=== PATIENT | female | born 1980 | race Asian ===

== ENCOUNTER 2016-12-22 13:37 | Emergency (ER) | payer OTHER ==
[~2016-12-22] VITALS: Ht 152.4 cm; Wt 99.8 kg
[~2016-12-22 13:37] MED LIST: AMOX875T PO; CYCL10TA2 PO; HYDR-971 PO; NAPR500T8 PO
[2016-12-22 13:40] VITALS: BP 149/102
--- NOTE | 2016-12-22 15:51 | PHYS DOC ---
Past Medical History Past Medical History: No Pertinent History Past Surgical History: No Surgical History Additional Information: nonsmoker Alcohol Use: None Drug Use: None Adult General Chief Complaint Chief Complaint: MENSTRUAL PAIN/[facility] HPI Patient is a 36 year old female who presents with suprapubic pain starting yesterday. She reports nausea without vomiting. She feels pain in her lower abdomen when urinating but denies burning with urination. She has had urinary frequency without urgency or hematuria. She denies change in bowel movements, fever, or vaginal discharge. The patient reports that she has had vaginal bleeding since 11/23/16. She had not had a menstrual cycle in many years prior to last month. She is not on control. She has never been . She is unsure why she did not have menses, but never sought medical attention for her lack of menses. She does not have a PCP. Review of Systems Review of Systems Constitutional: Denies fever or chills. [] Eyes: Denies change in visual acuity, redness, or eye pain. [] HENT: Denies ear pain, nasal congestion or sore throat. [] Respiratory: Denies cough or shortness of breath. [] Cardiovascular: Denies chest pain, palpitations or edema. [] GI: Denies vomiting, bloody stools or diarrhea. Reports suprapubic pain and nausea. : Denies dysuria, hematuria. Denies vaginal discharge or urinary urgency. Reports urinary frequency and vaginal bleeding. Musculoskeletal: Denies joint pain. Reports bilateral lower back pain. Integument: Denies rash or skin lesions. [] Neurologic: Denies headache, focal weakness or sensory changes. [] Endocrine: Denies polyuria or polydipsia. [] Psych: Denies anxiety or depression. [] All systems reviewed and negative unless otherwise stated in the HPI. Allergies Allergies Allergies Coded Allergies Type Severity Reaction Last Updated Verified No Known Drug Allergies 03/03/16 No Physical Exam Physical Exam Constitutional: Well developed, well nourished, no acute distress, non-toxic appearance. [] HENT: Normocephalic, atraumatic, oropharynx moist. [] Eyes: PERRLA, EOMI, conjunctiva normal, no discharge. [] Neck: Normal range of motion, no tenderness, supple, no stridor. [] Cardiovascular: Heart rate regular rhythm, no murmur. [] Lungs & Thorax: Bilateral breath sounds clear to auscultation without wheezes, rales, or rhonchi. [] Abdomen: Bowel sounds normal, soft, suprapubic tenderness, no masses, no pulsatile masses. [] Female : ED RN armature connector present. Skin: Warm, dry, no erythema, no rash. [] Back: No midline tenderness, no CVA tenderness. [] Extremities: No tenderness, ROM intact, no edema. Distal pulses equal bilaterally. [] Neurologic: Alert and oriented X 3, normal motor function, normal sensory function, no focal deficits noted. [] Psychologic: Affect normal, judgement normal, mood normal. [] Current Patient Data Vital Signs Vital Signs Date Time Temp Pulse Resp B/P Pulse Ox O2 Delivery O2 Flow Rate FiO2 12/22/16 13:40 98.9 98 18 149/102 98 Room Air 98.9 Lab Values Laboratory Tests Test 12/22/16 15:00 12/22/16 15:20 12/22/16 16:18 POC Urine HCG, Qualitative Hcg negative (Negative) Urine Collection Type Unknown Urine Color Yellow Urine Clarity Turbid Urine pH 8.0 Urine Specific [place] 1.020 Urine Protein 30mg/dL (NEG-TRACE) Urine Glucose (UA) Negativemg/dL (NEG) Urine Ketones (Stick) Negativemg/dL (NEG) Urine Blood Large (NEG) Urine Nitrite Negative (NEG) Urine Bilirubin Negative (NEG) Urine Urobilinogen Dipstick 1.0mg/dL (0.2 mg/dL) Urine Leukocyte Esterase Small (NEG) Urine RBC >40/HPF (0-2) Urine WBC 1-4/HPF (0-4) Urine Squamous Epithelial Cells Mod/LPF Urine Amorphous Sediment Present/HPF Urine Bacteria 0/HPF (0-FEW) White Blood Count 10.6x10^3/uL (4.0-11.0) Red Blood Count 4.04x10^6/uL (3.50-5.40) Hemoglobin 10.4g/dL (12.0-15.5) L Hematocrit 32.2% (36.0-47.0) L Mean Corpuscular Volume 80fL (79-100) Mean Corpuscular Hemoglobin 26pg (25-35) Mean Corpuscular Hemoglobin Concent 32g/dL (31-37) Red Cell Distribution Width 15.1% (11.5-14.5) H Platelet Count 305x10^3/uL (140-400) Neutrophils (%) (Auto) 68% (31-73) Lymphocytes (%) (Auto) 19% (24-48) L Monocytes (%) (Auto) 10% (0-9) H Eosinophils (%) (Auto) 2% (0-3) Basophils (%) (Auto) 0% (0-3) Neutrophils # (Auto) 7.3x10^3uL (1.8-7.7) Lymphocytes # (Auto) 2.0x10^3/uL (1.0-4.8) Monocytes # (Auto) 1.1x10^3/uL (0.0-1.1) Eosinophils # (Auto) 0.2x10^3/uL (0.0-0.7) Basophils # (Auto) 0.0x10^3/uL (0.0-0.2) Laboratory Tests 12/22/16 16:18 Microbiology 12/22/16 Wet Prep - Final, Complete Microbiology 12/22/16 Wet Prep - Final, Complete WET PREP Final YEAST NONE SEEN TRICHOMONAS NONE SEEN CLUE CELLS NONE SEEN WBCS MODERATE EKG EKG [] Radiology/Procedures Radiology/Procedures REASON: vaginal bleeding x1 month PROCEDURE: PELVIS ULTRASOUND Pelvic ultrasound, 12/22/2016: History: Vaginal bleeding and pelvic pain Transabdominal scans were obtained. The uterus measures 8.3 x 5.4 x 3.6 cm. The central uterine echo complex measures 7 mm in AP dimension. The ovaries are of normal size. Blood flow is present in both ovaries. No adnexal mass is seen. No free fluid is evident in the pelvis. IMPRESSION: No significant abnormality is detected. Course & Med Decision Making Course & Med Decision Making Pertinent Labs and Imaging studies reviewed. (See chart for details) The patient is a 36-year-old female presents with suprapubic pain starting today and vaginal bleeding ongoing for 1 month. On exam, her abdomen is soft and nonsurgical with suprapubic tenderness. Pelvic examination reveals moderate bleeding with diffuse tenderness. Pelvic ultrasound does not show any acute abnormalities. Wet mount is negative. Urine is negative for infection. Her hemoglobin is stable. She is discharged with prescription for Tylenol #3 and naproxen. She is given contact information for gynecology for follow-up. Return precautions were discussed. She verbalizes understanding and agrees with plan. Dragon Disclaimer Dragon Disclaimer This electronic medical record was generated, in whole or in part, using a voice recognition dictation system. Departure Departure Impression: Primary Impression: Menorrhagia with irregular cycle Disposition: HOME, SELF-CARE Condition: STABLE Referrals: PANCHITO FINE Jr, MD Patient Instructions: Menorrhagia, [id number] Additional Instructions: You were seen for vaginal bleeding and pelvic pain. Your ultrasound does not show any abnormalities. Your urine does not show any infection. Please follow-up with the director listed below for your vaginal bleeding. Return to the emergency department if you have heavy bleeding requiring you to change a pad or tampon every hour or, feel lightheaded or dizzy, or have any other new or concerning symptoms. Scripts Acetaminophen With Codeine (Tylenol With Codeine #3 Tablet)1 Each Tablet1 Tab PO PRN Q6HRS PRN PAIN #20 TAB Prov:ANNA CANDELARIO 12/22/16 Naproxen (Naprosyn)500 Mg Tablet1 Tab PO BID #20 TAB Prov:ANNA CANDELARIO 12/22/16 ANNA CANDELARIO Dec 22, 2016 15:51
[2016-12-22 16:01] LABS: BILIRUBIN,URINE NEGATIVE (NEG); GLUCOSE,URINE NEGATIVE (NEG); NITRITE,URINE NEGATIVE (NEG); PROTEIN,URINE 30 mg/dL (NEG-TRACE)
[2016-12-22 16:09] LABS: BACTERIA,URINE 0 /HPF (0-FEW); RBC,URINE >40 /HPF (0-2); SQUAMOUS EPITHELIAL CELL,UR MOD /LPF
--- NOTE | 2016-12-22 16:29 | RAD ---
Pelvic ultrasound, 12/22/2016: History: Vaginal bleeding and pelvic pain Transabdominal scans were obtained. The uterus measures 8.3 x 5.4 x 3.6 cm. The central uterine echo complex measures 7 mm in AP dimension. The ovaries are of normal size. Blood flow is present in both ovaries. No adnexal mass is seen. No free fluid is evident in the pelvis. IMPRESSION: No significant abnormality is detected.
[2016-12-22] MEDS ORDERED: NAPR500T PO (16:36)
[2016-12-22] MEDS ORDERED: ACET-704 PO (16:36)
[2016-12-22 16:42] LABS: BASO % 0 % (0-3); EOS % 2 % (0-3); HEMATOCRIT 32.2 % (36.0-47.0); HEMOGLOBIN 10.4 g/dL (12.0-15.5); LYMPH % 19 % (24-48); MEAN CORPUSCULAR HEMOGLOBIN 26 pg (25-35); MEAN CORPUSCULAR HGB CONC 32 g/dL (31-37); MEAN CORPUSCULAR VOLUME 80 fL (79-100); MONO % 10 % (0-9); NEUT % 68 % (31-73); PLATELET COUNT 305 x10^3/uL (140-400); RED BLOOD COUNT 4.04 x10^6/uL (3.50-5.40); RED CELL DISTRIBUTION WIDTH 15.1 % (11.5-14.5); WHITE BLOOD COUNT 10.6 x10^3/uL (4.0-11.0)
== END 2016-12-22 17:00 | disposition home or self-care (01) ==
LOC: ER 13:37
DX: N92.5 Other specified irregular menstruation (principal)
CPT/HCPCS: 36415; 76856; 81001; 81025; 85027; 87086; 87491; 87591; 99285; Q0111

== ENCOUNTER 2017-08-07 10:21 | Emergency (ER) | payer SELFPAY ==
[~2017-08-07] VITALS: Ht 152.4 cm; Wt 90.7 kg
[~2017-08-07 10:21] MED LIST changes: +ACET-704 PO; +NAPR500T PO
[2017-08-07] MEDS ORDERED: FAMOTIDINE 20 MG/2 ML VIAL IVP ONE (11:45)
[2017-08-07] MEDS ORDERED: ONDANSETRON PF 4 MG/2 ML VIAL. IV ONE (11:45)
[2017-08-07] MEDS ORDERED: KETOROLAC 30 MG/ML INJ. IV ONE (11:45)
[2017-08-07 12:11] LABS: BILIRUBIN,URINE NEGATIVE (NEG); GLUCOSE,URINE NEGATIVE (NEG); NITRITE,URINE NEGATIVE (NEG); PROTEIN,URINE NEGATIVE (NEG-TRACE)
[2017-08-07 12:16] LABS: BASO # 0.1 x10^3/uL (0.0-0.2); BASO % 1 % (0-3); EOS % 4 % (0-3); HEMATOCRIT 29.5 % (36.0-47.0); LYMPH # 2.5 x10^3/uL (1.0-4.8); LYMPH % 30 % (24-48); MEAN CORPUSCULAR HEMOGLOBIN 20 pg (25-35); MEAN CORPUSCULAR HGB CONC 31 g/dL (31-37); MEAN CORPUSCULAR VOLUME 66 fL (79-100); MONO % 6 % (0-9); NEUT % 59 % (31-73); PLATELET COUNT 343 x10^3/uL (140-400); RED BLOOD COUNT 4.48 x10^6/uL (3.50-5.40); RED CELL DISTRIBUTION WIDTH 18.6 % (11.5-14.5); WHITE BLOOD COUNT 8.4 x10^3/uL (4.0-11.0)
[2017-08-07 12:25] LABS: CALCIUM 8.3 mg/dL (8.5-10.1); CREATININE 0.6 mg/dL (0.6-1.0); GFR 114.4; POTASSIUM 4.1 mmol/L (3.5-5.1)
[2017-08-07 12:30] LABS: ALBUMIN 3.1 g/dL (3.4-5.0); ALBUMIN/GLOBULIN RATIO 0.6 (1.0-1.7); TOTAL BILIRUBIN 0.2 mg/dL (0.2-1.0); TOTAL PROTEIN 7.9 g/dL (6.4-8.2)
--- NOTE | 2017-08-07 12:35 | RAD ---
Abdominal ultrasound, 08/07/2017: History: Abdominal pain The gallbladder is within normal limits in size. There is no sonographic evidence of cholelithiasis. The common hepatic duct measures 4 mm. There is no evidence of a hepatic mass or bile duct dilatation. The hepatic echogenicity is slightly increased, most commonly due to fatty change. Limited views of the pancreatic body are unremarkable. Other portions of the pancreas and central retroperitoneum including the aorta were obscured by overlying bowel. The visualized portions of the aorta and inferior vena cava are unremarkable. The spleen is of normal size. No renal abnormality is detected. IMPRESSION: 1. Increased hepatic echogenicity suggesting hepatic steatosis. 2. No acute abdominal abnormality is detected.
[2017-08-07 12:41] LABS: BACTERIA,URINE 0 /HPF (0-FEW); SQUAMOUS EPITHELIAL CELL,UR MOD /LPF
[2017-08-07] MEDS ORDERED: OMEP20CA9 PO (13:18)
[2017-08-07] MEDS ORDERED: PREN1TAB58 PO (13:18)
--- NOTE | 2017-08-07 13:19 | PHYS DOC ---
Past Medical History Past Medical History: No Pertinent History Past Surgical History: No Surgical History Alcohol Use: None Drug Use: None Adult General Chief Complaint Chief Complaint: ABDOMINAL PAIN HPI HPI Patient is a 36 year old female with no significant medical history who presents with mild epigastric abdominal pain that began 2 days ago. Patient denies any nausea vomiting with it. Patient denies any urgency frequency dysuria. Denies anything exacerbating or making the pain better. Denies any vaginal discharge, denies any chance she is . Review of Systems Review of Systems Constitutional: Denies fever or chills [] Eyes: Denies change in visual acuity, redness, or eye pain [] HENT: Denies nasal congestion or sore throat [] Respiratory: Denies cough or shortness of breath [] Cardiovascular: No additional information not addressed in HPI [] GI: Epigastric abdominal pain, denies nausea, vomiting, bloody stools or diarrhea [] : Denies dysuria or hematuria [] Musculoskeletal: Denies back pain or joint pain [] Integument: Denies rash or skin lesions [] Neurologic: Denies headache, focal weakness or sensory changes [] All other systems were reviewed and found to be within normal limits, except as documented in this note. Current Medications Current Medications Current Medications Medications (Trade) Dose Ordered Sig/Valorie Start Time Stop Time Status Last Admin Dose Admin Famotidine (Pepcid Vial) 20 mg 1X ONCE 08/07/17 11:45 08/07/17 11:46 DC 08/07/17 12:05 20 MG Ketorolac Tromethamine (Toradol) 30 mg 1X ONCE 08/07/17 11:45 08/07/17 11:46 DC 08/07/17 12:05 30 MG Ondansetron HCl (Zofran) 4 mg 1X ONCE 08/07/17 11:45 08/07/17 11:46 DC 08/07/17 12:05 4 MG Allergies Allergies Allergies Coded Allergies Type Severity Reaction Last Updated Verified No Known Drug Allergies 03/03/16 No Physical Exam Physical Exam Constitutional: Well developed, well nourished, no acute distress, non-toxic appearance. [] HENT: Normocephalic, atraumatic, bilateral external ears normal, oropharynx moist, no oral exudates, nose normal. [] Eyes: PERRLA, EOMI, conjunctiva normal, no discharge. [] Neck: Normal range of motion, no tenderness, supple, no stridor. [] Cardiovascular:Heart rate regular rhythm, no murmur [] Lungs & Thorax: Bilateral breath sounds clear to auscultation [] Abdomen: Bowel sounds normal, soft, slight epigastric tenderness, no right upper quadrant or right lower quadrant tenderness no masses, no pulsatile masses. [] Skin: Warm, dry, no erythema, no rash. [] Back: No tenderness, no CVA tenderness. [] Extremities: No tenderness, no cyanosis, no clubbing, ROM intact, no edema. [] Neurologic: Alert and oriented X 3, normal motor function, normal sensory function, no focal deficits noted. [] Psychologic: Affect normal, judgement normal, mood normal. [] Current Patient Data Vital Signs Vital Signs Date Time Temp Pulse Resp B/P (MAP) Pulse Ox O2 Delivery O2 Flow Rate FiO2 08/07/17 10:55 97.7 61 18 142/66 (91) 95 Room Air 97.7 Lab Values Laboratory Tests Test 08/07/17 11:01 08/07/17 11:02 08/07/17 12:05 POC Urine HCG, Qualitative Hcg negative (Negative) Urine Collection Type Unknown Urine Color Yellow Urine Clarity Clear Urine pH 6.0 Urine Specific [place] 1.025 Urine Protein Negative mg/dL (NEG-TRACE) Urine Glucose (UA) Negative mg/dL (NEG) Urine Ketones (Stick) Negative mg/dL (NEG) Urine Blood Negative (NEG) Urine Nitrite Negative (NEG) Urine Bilirubin Negative (NEG) Urine Urobilinogen Dipstick 1.0 mg/dL (0.2 mg/dL) Urine Leukocyte Esterase Negative (NEG) Urine RBC 1-2 /HPF (0-2) Urine WBC 1-4 /HPF (0-4) Urine Squamous Epithelial Cells Mod /LPF Urine Bacteria 0 /HPF (0-FEW) Urine Mucus Mod /LPF White Blood Count 8.4 x10^3/uL (4.0-11.0) Red Blood Count 4.48 x10^6/uL (3.50-5.40) Hemoglobin 9.0 g/dL (12.0-15.5) L Hematocrit 29.5 % (36.0-47.0) L Mean Corpuscular Volume 66 fL (79-100) L Mean Corpuscular Hemoglobin 20 pg (25-35) L Mean Corpuscular Hemoglobin Concent 31 g/dL (31-37) Red Cell Distribution Width 18.6 % (11.5-14.5) H Platelet Count 343 x10^3/uL (140-400) Neutrophils (%) (Auto) 59 % (31-73) Lymphocytes (%) (Auto) 30 % (24-48) Monocytes (%) (Auto) 6 % (0-9) Eosinophils (%) (Auto) 4 % (0-3) H Basophils (%) (Auto) 1 % (0-3) Neutrophils # (Auto) 4.9 x10^3uL (1.8-7.7) Lymphocytes # (Auto) 2.5 x10^3/uL (1.0-4.8) Monocytes # (Auto) 0.5 x10^3/uL (0.0-1.1) Eosinophils # (Auto) 0.3 x10^3/uL (0.0-0.7) Basophils # (Auto) 0.1 x10^3/uL (0.0-0.2) Platelet Estimate Pending Sodium Level 140 mmol/L (136-145) Potassium Level 4.1 mmol/L (3.5-5.1) Chloride Level 107 mmol/L (98-107) Carbon Dioxide Level 26 mmol/L (21-32) Anion Gap 7 (6-14) Blood Urea Nitrogen 14 mg/dL (7-20) Creatinine 0.6 mg/dL (0.6-1.0) Estimated GFR (Cockcroft-Gault) 114.4 BUN/Creatinine Ratio 23 (6-20) H Glucose Level 85 mg/dL (70-99) Calcium Level 8.3 mg/dL (8.5-10.1) L Total Bilirubin 0.2 mg/dL (0.2-1.0) Aspartate Amino Transferase (AST) 27 U/L (15-37) Alanine Aminotransferase (ALT) 31 U/L (14-59) Alkaline Phosphatase 86 U/L (46-116) Total Protein 7.9 g/dL (6.4-8.2) Albumin 3.1 g/dL (3.4-5.0) L Albumin/Globulin Ratio 0.6 (1.0-1.7) L Lipase 120 U/L (73-393) Laboratory Tests 08/07/17 12:05 Laboratory Tests 08/07/17 12:05 EKG EKG [] Radiology/Procedures Radiology/Procedures [] Course & Med Decision Making Course & Med Decision Making Pertinent Labs and Imaging studies reviewed. (See chart for details) Patient is in the ED with epigastric abdominal pain. Negative urine hCG, urine analysis is negative for infection. CBC with normal WBC, hemoglobin 9, hematocrit 29.5, this appears to be chronic. CMP would not acute findings, abdominal ultrasound was negative for any acute findings. Highly suspect acid reflex. Recommended omeprazole. Provided GI for follow-up. Discharged in stable condition. Dragon Disclaimer Dragon Disclaimer This electronic medical record was generated, in whole or in part, using a voice recognition dictation system. Departure Departure Impression: Primary Impression: Epigastric abdominal pain Additional Impressions: Acid reflux Anemia Disposition: HOME, SELF-CARE Condition: STABLE Referrals: UNKNOWN PCP NAME (PCP) MICHAEL CUEVA MD follow up in one week Patient Instructions: Abdominal Pain, Diet for Gastroesophageal Reflux Disease , Adult, Gastroesophageal Reflux Disease, Adult, Iron Deficiency Anemia Additional Instructions: You were seen with epigastric abdominal pain. Your ultrasound and lab work did not have any acute findings. Your hemoglobin which is red blood cells is slightly low at 9 on young women this is typically from menstrual cycles. Consider taking a multivitamin with iron on daily basis. We sent you home with omeprazole on suspicion of your pain could be related to acid reflex. Take it as prescribed. Follow-up with the furnace erector provided in one week. Come back to the ED symptoms worsen. Scripts Vits W-Ca,Fe,Fa(<1MG) ( VITAMINS) 1 Each Tablet 1 TAB PO DAILY, #90 TAB 3 Refills Prov: MARIA INES NUNN APRN 08/07/17 Omeprazole (OMEPRAZOLE) 20 Mg Capsule. 1 CAP PO DAILY, #30 CAP 5 Refills Prov: MARIA INES NUNN APRN 08/07/17 Problem Qualifiers Additional Impressions: Acid reflux Esophagitis presence: with esophagitis Qualified Codes: K21.0 - Gastro- esophageal reflux disease with esophagitis Anemia Anemia type: unspecified type Qualified Codes: D64.9 - Anemia, unspecified MARIA INES NUNN APRN Aug 07, 2017 13:19
[2017-08-07 13:26] VITALS: BP 133/106
[2017-08-07 15:35] LABS: PLT ESTIMATE ADEQUATE (ADEQUATE)
[2017-08-07 15:36] LABS: ANISOCYTOSIS SLIGHT; HYPOCHROMIA MOD; MICROCYTOSIS MOD; POIKILOCYTOSIS SLIGHT
== END 2017-08-07 13:44 | disposition home or self-care (01) ==
LOC: ER 10:21
DX: K21.9 Gastro-esophageal reflux disease without esophagitis (principal); D64.9 Anemia, unspecified
CPT/HCPCS: 36415; 76700; 80053; 81001; 81025; 83690; 85025; 96374; 96375; 99285; J1885; J2405; S0028

== ENCOUNTER 2017-11-08 22:34 | Emergency (ER) | payer SELFPAY ==
[2017-11-08] MEDS: HYDROcodone/APAP 5/325MG 1 TAB TABLET PO (23:06)
== END 2017-11-08 23:08 | disposition home or self-care (01) ==
LOC: ER 22:34
DX: K04.7 Periapical abscess without sinus (principal)
CPT/HCPCS: 99283

== ENCOUNTER 2018-12-21 00:46 | Emergency (ER) | payer OTHER ==
[~2018-12-21] VITALS: Ht 152.4 cm; Wt 127.0 kg
[~2018-12-21 00:46] MED LIST changes: +AMOX500C PO; +HYDR-3164 PO; -HYDR-971 PO; +NAPR-683 PO; -NAPR500T PO; +OMEP20CA10 PO; +PREN1TAB58 PO
[2018-12-21 00:57] VITALS: BP 164/93
[2018-12-21] MEDS ORDERED: AMOX1TAB61 PO (01:25)
--- NOTE | 2018-12-21 01:26 | PHYS DOC ---
Past Medical History Past Medical History: No Pertinent History Past Surgical History: No Surgical History Alcohol Use: None Drug Use: None Adult General Chief Complaint Chief Complaint: SORE THROAT HPI HPI Patient is a 38 year old male presented ER today for evaluation of sore throat started yesterday. Patient denies any fever, no headache. Patient denies any nausea vomiting. Review of Systems Review of Systems Constitutional: Denies fever or chills [] Eyes: Denies change in visual acuity, redness, or eye pain [] HENT: Denies nasal congestion, POSITIVE FOR sore throat [] Respiratory: Denies cough or shortness of breath [] Cardiovascular: No additional information not addressed in HPI [] GI: Denies abdominal pain, nausea, vomiting, bloody stools or diarrhea [] : Denies dysuria or hematuria [] Musculoskeletal: Denies back pain or joint pain [] Integument: Denies rash or skin lesions [] Neurologic: Denies headache, focal weakness or sensory changes [] Endocrine: Denies polyuria or polydipsia [] All other systems were reviewed and found to be within normal limits, except as documented in this note. Allergies Allergies Allergies Coded Allergies Type Severity Reaction Last Updated Verified No Known Drug Allergies 03/03/16 No Physical Exam Physical Exam Constitutional: Well developed, well nourished, no acute distress, non-toxic appearance. [] HENT: Normocephalic, atraumatic, bilateral external ears normal, oropharynx IS ERYTHEMA, NO TONSILLAR SWELLING, NO UVULA SWELLING, no oral exudates, nose normal. [] Eyes: PERRLA, EOMI, conjunctiva normal, no discharge. [] Neck: Normal range of motion, no tenderness, supple, no stridor. [] Cardiovascular:Heart rate regular rhythm, no murmur [] Lungs & Thorax: Bilateral breath sounds clear to auscultation [] Abdomen: Bowel sounds normal, soft, no tenderness, no masses, no pulsatile masses. [] Skin: Warm, dry, no erythema, no rash. [] Back: No tenderness, no CVA tenderness. [] Extremities: No tenderness, no cyanosis, no clubbing, ROM intact, no edema. [] Neurologic: Alert and oriented X 3, normal motor function, normal sensory function, no focal deficits noted. [] Psychologic: Affect normal, judgement normal, mood normal. [] Current Patient Data Vital Signs Vital Signs Date Time Temp Pulse Resp B/P (MAP) Pulse Ox O2 Delivery O2 Flow Rate FiO2 12/21/18 00:57 98.3 74 18 97 Room Air 98.3 EKG EKG [] Radiology/Procedures Radiology/Procedures [] Course & Med Decision Making Course & Med Decision Making Pertinent Labs and Imaging studies reviewed. (See chart for details) [] Dragon Disclaimer Dragon Disclaimer This electronic medical record was generated, in whole or in part, using a voice recognition dictation system. Departure Departure Impression: Primary Impression: Pharyngitis Disposition: HOME, SELF-CARE Condition: STABLE Referrals: UNKNOWN PCP NAME (PCP) FOLLOW UP WITH YOUR DOCTOR NEEDED Patient Instructions: Viral and Bacterial Pharyngitis Scripts Amoxicillin/Potassium Clav (AUGMENTIN 875-125 TABLET) 1 Each Tablet 1 TAB PO BID, #20 TAB Prov: RAFAT KRAUSE DO 12/21/18 RAFAT KRAUSE DO Dec 21, 2018 01:25
== END 2018-12-21 01:37 | disposition home or self-care (01) ==
LOC: ER 00:46
DX: J02.9 Acute pharyngitis, unspecified (principal)
CPT/HCPCS: 99283

== ENCOUNTER 2019-02-05 12:17 | Emergency (ER) | payer OTHER, SELFPAY ==
[~2019-02-05] VITALS: Ht 152.4 cm; Wt 90.7 kg
[~2019-02-05 12:17] MED LIST changes: +AMOX1TAB61 PO
[2019-02-05 12:28] VITALS: BP 157/87
[2019-02-05] MEDS ORDERED: LIDOCAINE 1% PF 2 ML VIAL. INJ ONE (12:45)
[2019-02-05] MEDS ORDERED: cefTRIAXone IM 1 GM VIAL IM ONE (12:45)
[2019-02-05] MEDS ORDERED: DIPHTH,PERTUSS(ACELL),TET TOX 0.5 ML DISP.SYRIN. VAX IM ONE (12:45)
[2019-02-05] MEDS ORDERED: CEPH500T PO (13:05)
[2019-02-05] MEDS ORDERED: SULF1TAB24 PO (13:05)
--- NOTE | 2019-02-05 13:05 | PHYS DOC ---
Past Medical History Past Medical History: No Pertinent History Past Surgical History: No Surgical History Alcohol Use: None Drug Use: None Adult General Chief Complaint Chief Complaint: ABSCESS HPI HPI Patient is a 38 year old male who presents with left buttock abscess for 5 days, denies any fever. She states she picked on them and drained them a few days ago. Review of Systems Review of Systems Constitutional: Denies fever or chills [] Musculoskeletal: Denies back pain or joint pain [] Integument: Reports left buttock abscess Neurologic: Denies headache, focal weakness or sensory changes [] All other systems were reviewed and found to be within normal limits, except as documented in this note. Current Medications Current Medications Current Medications Medications (Trade) Dose Ordered Sig/Valorie Start Time Stop Time Status Last Admin Dose Admin Ceftriaxone Sodium (Rocephin Im) 1 gm 1X ONCE 02/05/19 12:45 02/05/19 12:46 DC Diphtheria/ Tetanus/Acell Pertussis (Boostrix) 0.5 ml ONCE ONCE 02/05/19 12:45 02/05/19 12:46 DC Lidocaine HCl (Xylocaine-Mpf 1% 2ml Vial) 2 ml 1X ONCE 02/05/19 12:45 02/05/19 12:46 DC Allergies Allergies Allergies Coded Allergies Type Severity Reaction Last Updated Verified No Known Drug Allergies 03/03/16 No Physical Exam Physical Exam Constitutional: Well developed, well nourished, no acute distress, non-toxic appearance. [] Skin: Left lateral thigh with an open wound approximately 3 x 3 cm consistent with an abscess that was opened up and drained, with surrounding cellulitis approximately 0.5 cm. There is 3 areas of superficial cellulitis noted on the left thigh each approximately 1 cm. Back: No tenderness, no CVA tenderness. [] Extremities: No tenderness, no cyanosis, no clubbing, ROM intact, no edema. [] Neurologic: Alert and oriented X 3, normal motor function, normal sensory function, no focal deficits noted. [] Psychologic: Affect normal, judgement normal, mood normal. [] Current Patient Data Vital Signs Vital Signs Date Time Temp Pulse Resp B/P (MAP) Pulse Ox O2 Delivery O2 Flow Rate FiO2 02/05/19 12:28 98.4 94 20 157/87 (110) 99 Room Air 98.4 EKG EKG [] Radiology/Procedures Radiology/Procedures [] Course & Med Decision Making Course & Med Decision Making Pertinent Labs and Imaging studies reviewed. (See chart for details) This is a 38-year-old female patient presented to the ED today with abscess and cellulitis of the left thigh that opened up and drained there is nothing to drain today. Tetanus was updated. Given Rocephin IM in the ED. Discharged with Bactrim and cephalexin. Instructed patient to avoid picking on this lesions. Warm compresses recommended to the area. Dragon Disclaimer Dragon Disclaimer This electronic medical record was generated, in whole or in part, using a voice recognition dictation system. Departure Departure Impression: Primary Impression: Abscess or cellulitis of thigh Disposition: 01 HOME, SELF-CARE Condition: STABLE Referrals: UNKNOWN PCP NAME (PCP) Follow-up in one week with your doctor Patient Instructions: Abscess, Cellulitis Additional Instructions: You were evaluated in the emergency room for an abscess and cellulitis of the left thigh. Keep the areas clean and dry. Avoid picking on the abscess areas. Complete your prescribed antibiotics. Follow-up with your doctor in 1-2 weeks. Apply warm compresses to the area twice a day. Scripts Sulfamethoxazole/Trimethoprim (BACTRIM DS TABLET) 1 Each Tablet 1 TAB PO BID, #20 TAB Prov: MARIA INES NUNN APRN 02/05/19 Cephalexin (CEPHALEXIN) 500 Mg Tablet 1 TAB PO QID, #40 TAB Prov: MARIA INES NUNN APRN 02/05/19 MARIA INES NUNN APRN February 05, 2019 13:05
== END 2019-02-05 13:17 | disposition home or self-care (01) ==
LOC: ER 12:17
DX: L03.116 Cellulitis of left lower limb (principal); L02.416 Cutaneous abscess of left lower limb; L02.31 Cutaneous abscess of buttock
CPT/HCPCS: 90471; 90715; 96372; 99284; J0696